=== PATIENT | female | born 1955 | race Caucasian/White ===

== ENCOUNTER 2020-03-30 07:00 | Outpatient (CLI) | payer OTHER | END 2020-03-30 23:59 | disposition home or self-care (01) | LOC: LAB.R 07:00 | PROVIDERS: ATTEND Physician Assistant Medical | DX: N30.00 Acute cystitis without hematuria (principal) | CPT/HCPCS: 87077; 87086; 87181 ==

== ENCOUNTER 2020-09-04 08:00 | Outpatient (CLI) | payer MEDICARE, OTHER ==
--- NOTE | 2020-09-04 10:14 | XRAY Report ---
PROCEDURE: Knee 4 View RT INDICATIONS: KNEE PAIN, RIGHT TECHNIQUE: 4 views of the right knee(s) were acquired. COMPARISON: None. FINDINGS: Bones: No fractures or dislocations. No suspicious bony lesions. There is medial tilt of the knee. Severe tricompartmental knee joint degeneration, most pronounced at medial femorotibial compartment and patellofemoral compartment. Soft tissues: Trace joint effusion. No suspicious soft tissue calcifications. IMPRESSION: Severe osteoarthritis of the right knee. Reviewed by: Alysia Valadez MD on 09/04/2020 10:12 AM PDT Approved by: Alysia Valadez MD on 09/04/2020 10:12 AM PDT Station ID: [id number]
== END 2020-09-04 23:59 | disposition home or self-care (01) ==
LOC: DI.N 08:00
PROVIDERS: ATTEND Orthopaedic Surgery
DX: M17.11 Unilateral primary osteoarthritis, right knee (principal)

== ENCOUNTER 2020-12-01 13:17 | Outpatient (CLI) | payer MEDICARE, OTHER ==
--- NOTE | 2020-12-16 15:24 | Mammography Report ---
BILATERAL DIGITAL SCREENING MAMMOGRAM 3D/2D: 12/01/2020 CLINICAL: Routine screening. Comparison is made to exams dated: 07/02/2019 mammogram, 06/29/2018 mammogram, and 06/13/2017 mammogram - [facility]. The tissue of both breasts is predominantly fatty. There are calcifications in the right breast. No significant masses, calcifications, or other findings are seen in either breast. There has been no significant interval change. IMPRESSION: BENIGN There is no mammographic evidence of malignancy. A 1 year screening mammogram is recommended. This exam was interpreted at Station ID: [id number]. NOTE: For mammograms, a report in lay terms will be sent to the patient. Approximately 15% of breast malignancies will not be visualized mammographically. In the management of a palpable breast mass, a negative mammogram must not discourage biopsy of a clinically suspicious lesion. Electronically Signed By: Yassine Cheema M.D. aty/:12/16/2020 06:53:21 ACR BI-RADS Category 2: Benign Finding(s) 3342F PARENCHYMAL PATTERN: (F) - The breast(s) demonstrate(s) diffuse fatty replacement. BI-RADS CATEGORY: (2) - 2 RECOMMENDATION: (ANNUAL) - Recommend routine annual screening mammography. [id number] 1 year screening LATERALITY: (B)
== END 2020-12-01 13:18 | disposition home or self-care (01) ==
LOC: DI 13:17
DX: Z12.31 Encounter for screening mammogram for malignant neoplasm of breast (principal)

== ENCOUNTER 2021-03-02 11:50 | Outpatient (CLI) | payer MEDICARE, OTHER ==
--- NOTE | 2021-03-02 12:44 | Ultrasound Report ---
PROCEDURE: Duplex Ext Veins Right INDICATIONS: RT LEG PAIN TECHNIQUE: Real-time imaging, as well as color and pulse Doppler interrogation, were performed of the lower extr emity deep veins from the inguinal ligament to the popliteal fossa. COMPARISON: None. FINDINGS: The deep veins are normally compressible, and free of intraluminal thrombus. Color and pu lse Doppler demonstrate normal phasic intraluminal flow. There is normal augmentation response to di stal compression maneuver. IMPRESSION: No evidence of deep venous thrombosis, right lower extremity Reviewed by: Andrew Hidalgo MD on 03/02/2021 11:43 AM [facility] Approved by: Andrew Hidalgo MD on 03/02/2021 11:43 AM [facility] Station ID: [id number]
== END 2021-03-02 11:51 | disposition home or self-care (01) ==
LOC: DI 11:50
PROVIDERS: ATTEND Internal Medicine
DX: M79.604 Pain in right leg (principal)

== ENCOUNTER 2021-10-07 11:24 | Outpatient (CLI) | payer MEDICARE, OTHER ==
[2021-10-07 11:48] LABS: BASOPHILS % (AUTO) 0.7 %; EOSINOPHILS # (AUTO) 0.1 10^3/uL (0.0-0.7); EOSINOPHILS % (AUTO) 2.2 %; HGB - HEMOGLOBIN 13.3 g/dL (12.0-16.0); LYMPHOCYTES # (AUTO) 1.4 10^3/uL (1.5-3.5); LYMPHOCYTES % (AUTO) 34.2 %; MEAN CORPUSCULAR HEMOGLOBIN 30.4 pg (27.0-31.0); MEAN CORPUSCULAR HGB CONC 32.4 g/dL (32.0-36.0); MEAN CORPUSCULAR VOLUME 93.8 fL (81.0-99.0); MEAN PLATELET VOLUME 10.5 fL (7.9-10.8); MONOCYTES # (AUTO) 0.4 10^3/uL (0.0-1.0); NEUTROPHILS # (AUTO) 2.2 10^3/uL (1.5-6.6); NEUTROPHILS % (AUTO) 53.7 %; PLT - PLATELET COUNT 277 10^3/uL (130-450); RED BLOOD COUNT 4.37 10^6/uL (4.20-5.40); RED CELL DISTRIBUTION WIDTH 12.5 % (12.0-15.0); WHITE BLOOD COUNT 4.1 x10^3/uL (4.8-10.8)
[2021-10-07 12:05] LABS: % IRON SATURATION 16 % (20-50); ALBUMIN 4.1 g/dL (3.2-5.5); ALBUMIN/GLOBULIN RATIO 1.4 (1.0-2.2); ALKALINE PHOSPHATASE 102 IU/L (42-121); ALT ALANINE AMINOTRANSFERASE 20 IU/L (10-60); AST ASPARTATE AMINOTRANSFERASE 21 IU/L (10-42); BILIRUBIN,TOTAL 0.7 mg/dL (0.2-1.0); BUN - BLOOD UREA NITROGEN 18 mg/dL (6-20); CALCIUM 9.4 mg/dL (8.5-10.3); CARBON DIOXIDE - CO2 29 mmol/L (21-32); CHLORIDE 100 mmol/L (101-111); CHOL/HDL RATIO 4.1 (<4.4); CHOLESTEROL 237 mg/dL; CREATININE 0.6 mg/dL (0.4-1.0); GFR - MDRD 100 (>89); GLUCOSE 94 mg/dL (70-100); HDL CHOLESTEROL 58 mg/dL; IRON 63 ug/dL (28-170); LDL CHOLESTEROL,CALCULATED 152 mg/dL; LDL/HDL RATIO 2.6 (<4.4); PREALBUMIN 27 mg/dL (18-45); SODIUM 139 mmol/L (135-145); TOTAL IRON BINDING CAPACITY 392 ug/dL (250-450); TOTAL PROTEIN 7.1 g/dL (6.7-8.2); TRANSFERRIN 280 mg/dL (192-382); TRIGLYCERIDES 136 mg/dL; VLDL CHOLESTEROL 27 mg/dL
[2021-10-07 12:15] LABS: THYROID STIMULATING HORMONE 2.43 uIU/mL (0.34-5.60)
[2021-10-07 12:23] LABS: FERRITIN 202.6 ng/mL (11.0-306.8)
== END 2021-10-07 11:25 | disposition home or self-care (01) ==
LOC: LAB 11:24
PROVIDERS: ATTEND Internal Medicine
DX: Z00.00 Encounter for general adult medical examination without abnormal findings (principal); I49.9 Cardiac arrhythmia, unspecified; U07.1 COVID-19; E21.3 Hyperparathyroidism, unspecified; I10 Essential (primary) hypertension; Z22.7 Latent tuberculosis; N32.81 Overactive bladder
CPT/HCPCS: 36415; 80053; 80061; 82306; 82525; 82607; 82728; 82746; 83036; 83540; 83721; 83735; 83970; 84134; 84255; 84425; 84443; 84466; 84630; 85025

== ENCOUNTER 2021-10-08 12:06 | Outpatient (CLI) | payer MEDICARE, OTHER ==
[2021-10-09 13:09] LABS: SELENIUM SERUM/PLASMA 174 ug/L (93-198)
[2021-10-09 17:08] LABS: COPPER SERUM OR PLASMA 149 ug/dL (80-158); ZINC PLASMA OR SERUM 74 ug/dL (44-115)
== END 2021-10-08 12:07 | disposition home or self-care (01) ==
LOC: LAB 12:06
PROVIDERS: ATTEND Internal Medicine
DX: Z00.00 Encounter for general adult medical examination without abnormal findings (principal); U07.1 COVID-19; I49.9 Cardiac arrhythmia, unspecified; E21.3 Hyperparathyroidism, unspecified; I10 Essential (primary) hypertension; Z22.7 Latent tuberculosis; N32.81 Overactive bladder
CPT/HCPCS: 36415; 82525; 84255; 84630

== ENCOUNTER 2022-12-02 10:12 | Outpatient (CLI) | payer MEDICARE, OTHER ==
--- NOTE | 2022-12-03 10:34 | Mammography Report ---
BILATERAL DIGITAL SCREENING MAMMOGRAM 3D/2D: 12/02/2022 CLINICAL: Routine screening. Personal history of right breast cancer. Comparison is made to exams dated: 12/02/2021 mammogram, 12/01/2020 mammogram - [facility], 07/02/2019 mammogram, 06/29/2018 mammogram, and 07/06/2017 mammogram - [facility]. Both breasts are almost entirely fatty (category a/<25% glandular tissue). There are benign calcifications in the right breast. There also are benign post operative findings i n the right breast. No significant masses, calcifications, or other findings are seen in either breast. There has been no significant interval change. IMPRESSION: BENIGN There is no mammographic evidence of malignancy. A 1 year screening mammogram is recommended. This exam was interpreted at Station ID: [id number]. NOTE: For mammograms, a report in lay terms will be sent to the patient. Approximately 15% of breast malignancies will not be visualized mammographically. In the management of a palpable breast mass, a negative mammogram must not discourage biopsy of a clinically suspicious lesion. Electronically Signed By: Eri woods/evangelina:12/02/2022 16:14:31 letter sent: No_Letter ACR BI-RADS Category 2: Benign Finding(s) 3342F PARENCHYMAL PATTERN: (F) - The breast(s) demonstrate(s) diffuse fatty replacement. BI-RADS CATEGORY: (2) - 2 Mammogram [id number] 1 year screening LATERALITY: (B)
== END 2022-12-02 10:13 | disposition home or self-care (01) ==
LOC: DI 10:12
DX: Z12.31 Encounter for screening mammogram for malignant neoplasm of breast (principal); Z85.3 Personal history of malignant neoplasm of breast

== ENCOUNTER 2023-01-18 15:56 | Outpatient (CLI) | payer MEDICARE, OTHER ==
--- NOTE | 2023-01-18 18:26 | XRAY Report ---
PROCEDURE: Foot 3 View LT INDICATIONS: PAIN IN LEFT FOOT TECHNIQUE: 3 views of the foot were acquired, nonweightbearing. COMPARISON: None. FINDINGS: Bones: No fractures or dislocations. No suspicious bony lesions. Mild first MTP joint space narrowi ng and osteophytosis. Mild IP joint space narrowing of the first through fifth toes. Mild to moderate mid foot dorsal osteophytosis. Normal alignment on nonweightbearing view. Soft tissues: No suspicious soft tissue calcifications or masses. Plantar calcaneal enthesophyte. IMPRESSION: 1. No acute bony abnormality. 2. 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 Reviewed by: Colten Cabrera MD on 01/18/2023 6:24 PM PDT Approved by: Colten Cabrera MD on 01/18/2023 6:24 PM PDT Station ID: [id number]
== END 2023-01-18 15:57 | disposition home or self-care (01) ==
LOC: DI 15:56
PROVIDERS: ATTEND Internal Medicine
DX: M19.072 Primary osteoarthritis, left ankle and foot (principal)

== ENCOUNTER 2023-10-06 08:00 | Outpatient (CLI) | payer MEDICARE, OTHER | END 2023-10-06 23:59 | disposition home or self-care (01) | LOC: LAB 08:00 | PROVIDERS: ATTEND Emergency Medicine | DX: R35.0 Frequency of micturition (principal) | CPT/HCPCS: 87086 ==

== ENCOUNTER 2024-01-07 10:38 | Outpatient (CLI) | payer MEDICARE, OTHER ==
--- NOTE | 2024-01-07 19:49 | XRAY Report ---
PROCEDURE: Foot 3+V LT INDICATIONS: CONTUSION OF LEFT FOOT TECHNIQUE: 3 views of the foot were acquired. COMPARISON: 01/18/2023. FINDINGS: Bones: No fractures or dislocations. Moderate osteoarthritic changes are noted throughout left foot. Well-defined plantar calcaneal enthesophyte is noted. Osteopenia is also seen. No suspicious bony le sions. Soft tissues: No tibiotalar joint effusion. Achilles tendon appears normal. IMPRESSION: 1. No acute left foot fracture or dislocation. 2. Moderate left foot joint osteoarthritis. Well-defined plantar calcaneal enthesophyte. Reviewed by: Dimitri Larkin MD on 01/07/2024 7:48 PM PDT Approved by: Dimitri Larkin MD on 01/07/2024 7:48 PM PDT Station ID: [id number]
== END 2024-01-07 10:39 | disposition home or self-care (01) ==
LOC: DI 10:38
PROVIDERS: ATTEND Physician Assistant
DX: S90.32XA Contusion of left foot, initial encounter (principal); M19.072 Primary osteoarthritis, left ankle and foot; M77.32 Calcaneal spur, left foot